=== PATIENT | female | born 1980 | race Caucasian/White ===

== ENCOUNTER → 2019-08-06 | Outpatient (CLI) | payer BC ==
--- NOTE | 2019-08-07 09:48 | XR ---
Left ankle HISTORY: Left ankle pain There is no significant soft tissue swelling. Bone mineralization, joint spaces and alignment are melba ntained. There is a plantar calcaneal spur. Enthesophyte present at the insertion of the Achilles ten don. IMPRESSION: No acute abnormality. Plantar calcaneus spur and additional findings above.
== END | disposition home or self-care (01) ==
LOC: RADXRMAIN 16:37
PROVIDERS: ATTEND Family Medicine
DX: M77.32 Calcaneal spur, left foot (principal); M76.62 Achilles tendinitis, left leg

== ENCOUNTER → 2020-08-26 | Outpatient (CLI) | payer BC ==
--- NOTE | 2020-08-26 13:43 | US ---
EXAMINATION TYPE: US pelvis limited transvag DATE OF EXAM: 08/26/2020 COMPARISON: CT 07/15/2015 CLINICAL HISTORY: 40-year-old female R10.31 Rt lower quad pain. Right pelvic pain x 1 day, 1, para 1 TECHNIQUE: Transabdominal sonographic images of the pelvis were acquired. Transvaginal sonographic i mages were medically necessary to better assess the following anatomy: ovaries Date of LMP: 07/25/2020 FINDINGS: EXAM MEASUREMENTS: Uterus: 10.1 x 5.5 x 6.0 cm Endometrial Stripe: 0.6 cm Right Ovary: Heterogeneous structure measuring up to 6.4 cm. Left Ovary: 3.4 x 2.4 x 3.7 cm 1. Uterus: anteverted, bulky, heterogeneous. Numerous cervical nabothian cysts. 2. Endometrium: appears wnl 3. Right Ovary: CT adnexa below 4. Left Ovary: 1.5cm hyperechoic focus 5. Bilateral Adnexa: right adnexa: 6.4 x 4.1 x 4.2cm complex area seen within right adnexa, this con tains cystic and echogenic areas corresponding well to the lesion seen on the CT of 2014 containing c alcification and fat. 6. Posterior cul-de-sac: wnl IMPRESSION: 1. Heterogeneous, bulky uterus could reflect underlying diffuse fibroid change. 2. Large 6.4 cm lesion within the right adnexa corresponds to the ovarian dermoid seen on the 015 CT where measurements were similar. 3. Additional small 1.5 cm dermoid within the left ovary.
== END | disposition home or self-care (01) ==
LOC: RADUSWWP 12:37
PROVIDERS: ATTEND Family Medicine
DX: N85.2 Hypertrophy of uterus (principal); N85.8 Other specified noninflammatory disorders of uterus
CPT/HCPCS: 76830; 76857

== ENCOUNTER → 2020-09-23 | Outpatient (CLI) | payer BC ==
[2020-09-23 15:56] LABS: Basophils % (A) 0 %; Eosinophils # (A) 0.1 k/uL (0-0.7); Eosinophils % (A) 1 %; HGB 13.6 gm/dL (11.4-16.0); Lymphocytes # (A) 2.5 k/uL (1.0-4.8); Lymphocytes % (A) 33 %; MCH 29.6 pg (25.0-35.0); MCHC 33.2 g/dL (31.0-37.0); MCV 89.3 fL (80.0-100.0); Mean Platelet Volume 7.5; Monocytes # (A) 0.3 k/uL (0-1.0); Monocytes % (A) 4 %; Neutrophils # (A) 4.5 k/uL (1.3-7.7); Neutrophils % (A) 59 %; Platelet Count 275 k/uL (150-450); RBC 4.59 m/uL (3.80-5.40); RDW 13.9 % (11.5-15.5); WBC 7.7 k/uL (3.8-10.6)
[2020-09-23 15:58] LABS: African American GFR (CKD) >90 (>60 ml/min/1.73 sqM); Anion Gap 6 mmol/L; Blood Urea Nitrogen 12 mg/dL (7-17); Calcium 9.3 mg/dL (8.4-10.2); Carbon Dioxide 25 mmol/L (22-30); Chloride 108 mmol/L (98-107); Glucose 83 mg/dL (74-99); Non-African American GFR(CKD) >90 (>60 ml/min/1.73 sqM); Potassium 3.9 mmol/L (3.5-5.1); Sodium 139 mmol/L (137-145)
== END | disposition home or self-care (01) ==
LOC: LABWHC1 14:57
PROVIDERS: ATTEND Obstetrics & Gynecology
DX: Z01.818 Encounter for other preprocedural examination (principal)
CPT/HCPCS: 36415; 80048; 85025

== ENCOUNTER 2020-09-29 05:46 | Inpatient (IN) | payer BC ==
[2020-09-23 12:08] VITALS: BMI 34.9
--- NOTE | 2020-09-28 12:13 | P.HPOB ---
History of Present Illness H&P Date: 09/28/20 Chief Complaint: Pelvic pain, bilateral dermoid cysts This patient is a pleasant 40 yr female with known bilateral dermoid cysts that have become larger and causing her significant pain. Her history is such that earlier this month she developed severe RLQ pain at work. She went to the ER and CT/ultrasound shows 6.8cm dermoid cyst of the right and 1.5cm dermoid cyst of the left ovary. She has had the right cyst since about 2014, but it has got larger. She now presents for excision. Patient requests right oopherectomy and also excision of left dermoid. Carito is done child bearing and therefore is also requesting permanent sterilization, so plan left salp ingectomy. Review of Systems Constitutional: Reports as per HPI Genitourinary: Reports as per HPI, Reports pelvic pain Past Medical History Past Medical History: Hypertension Additional Past Medical History / Comment(s): used to take BP med, no longer needed since weight loss, stopped in May, takes saxenda for weight loss, not diabetes History of Any Multi-Drug Resistant Organisms: None Reported Past Surgical History: Tonsillectomy Additional Past Surgical History / Comment(s): lasik eye surg. Past Anesthesia/Blood Transfusion Reactions: No Reported Reaction Past Psychological History: No Psychological Hx Reported Smoking Status: Never smoker Past Alcohol Use History: None Reported Past Drug Use History: None Reported - Past Family History Mother Family Medical History: No Reported History Medications and Allergies Home Medications Medication Instructions Recorded Confirmed Type Cetirizine HCl [Zyrtec] 10 mg PO DAILY 09/23/20 09/23/20 History Liraglutide [Saxenda] 3 mg SQ DAILY 09/23/20 09/23/20 History Allergies Allergy/AdvReac Type Severity Reaction Status Date / Time Sulfa (Sulfonamide Allergy Rash/Hives Verified 09/23/20 12:00 Antibiotics) cephalexin [From Keflex] AdvReac Nausea & Verified 09/23/20 12:01 Vomiting Exam - OBG Physical Exam Abdomen: bowel sounds normal, no diffuse tenderness, no bruit present, no guarding noted, no hepatomegaly, no splenomegaly, no mass Vulva: both: normal Vagina: normal moisture, no discharge Cervix: no lesion, no discharge Uterus: normal size, normal contour Adnexa: right: mass Results Ultrasound on 08/26/20 shows 6.4cm right ovarian dermoid, 1.5 cm left ovarian dermoid. Assessment and Plan Assessment: This is a pleasant 40 yr old female with know bilateral dermoid cysts (R>L) and pelvic pain. Patient and I have discussed management and plan to proceed with laparotomy, right salpingoopherectomy, left salpingectomy, and excision of left ovarian dermoid. I have had a long discussion with her in regards to the surgery and risks: infection, bleeding, possible injury to bowel/bladder/vessels and/or other organs. I also discussed the possible need of left oopherectomy. All of her questions were answered and a written consent obtained. (1) Pelvic pain Status: Acute Code(s): R10.2 - PELVIC AND PERINEAL PAIN SNOMED Code(s): 09082000 (2) Bilateral dermoid cysts of ovaries Status: Acute Code(s): D27.0 - BENIGN NEOPLASM OF RIGHT OVARY; D27.1 - BENIGN NEOPLASM OF LEFT OVARY SNOMED Code(s): 415973099
[~2020-09-29 05:46] MED LIST: DEXAMETHASONE SOD PHOSPHATE 4 MG/ML 1 ML VIAL IV ONE; MIDAZOLAM 2 MG/2 ML VIAL IV PRN; ONDANSETRON 4 MG/2 ML VIAL IVP ONE; SCOPOLAMINE 1.5MG/72HR PATCH TRANSDERM ONE
[2020-09-29] MEDS ORDERED: LACTATED RINGERS 1,000 ML IV ONE (06:32)
[2020-09-29 06:33] LABS: Glucose,Whole Blood 93 mg/dL (75-99)
[2020-09-29] MEDS ORDERED: fentaNYL (PF) 50 MCG/ML 2 ML AMP IVP ONE (06:49)
[2020-09-29] MEDS ORDERED: MIDAZOLAM 2 MG/2 ML VIAL IVP ONE (06:49)
[2020-09-29] MEDS ORDERED: HYDROmorphone 0.5 MG/0.5 ML SYRINGE IVP PRN (07:00)
[2020-09-29] MEDS ORDERED: MIDAZOLAM 2 MG/2 ML VIAL ONE (07:26)
[2020-09-29] MEDS ORDERED: ROCURONIUM 10 MG/ML (10 ML VIAL) IV ONE (07:26)
[2020-09-29] MEDS ORDERED: GLYCOPYRROLATE 0.2 MG/ML 2 ML VIAL ONE (07:26)
[2020-09-29] MEDS ORDERED: PROPOFOL 10 MG/ML 20 ML VIAL IV ONE (07:26)
[2020-09-29] MEDS ORDERED: fentaNYL (PF) 50 MCG/ML 2 ML AMP ONE (07:26)
[2020-09-29] MEDS ORDERED: NEOSTIGMINE 1 MG/ML 10 ML VIAL ONE (07:26)
[2020-09-29] MEDS ORDERED: LIDOCAINE 1% INJ 10MG/ML (20 ML MDV) ONE (07:26)
[2020-09-29] MEDS ORDERED: SUCCINYLCHOLINE CHLORIDE VIAL 200 MG/10 ML VIAL IV ONE (07:26)
[2020-09-29] MEDS ORDERED: CELLULOSE,OXIDIZED 1 EACH EACH MISCELLANE ONE (08:30)
--- NOTE | 2020-09-29 08:51 | P.OP ---
Date of Procedure: 09/29/20 Preoperative Diagnosis: #1: Pelvic pain. #2: Bilateral ovarian dermoid cysts #3: Requesting permanent sterilization Postoperative Diagnosis: Same Procedure(s) Performed: Exploratory laparotomy, right salpingo-oophorectomy, left salpingectomy, partial left oophorectomy with excision of dermoid Anesthesia: ROBEL Surgeon: Narinder Dennis Event Marketing Assistant #1: Nilda Gasca Estimated Blood Loss (ml): 30 Pathology: other (Right fallopian tube and ovary. Left fallopian tube. Portion of left ovary with dermoid) Condition: stable Disposition: PACU Indications for Procedure: Please see dictated H&P for intimate details of this patient's admission. Brief summary this is a pleasant 40-year-old 1 para 1 female with known bilateral dermoid cysts and significant worsening right sided pelvic pain. Patient presents for excision of her right tube and ovary and left fallopian tube and portion of the left ovary. She and I have discussed the surgery and risks including risks of infection, bleeding, possible injury to bowel, bladder, vessels, and/or other organs. All the patient's questions are answered and a written consent is obtained. Operative Findings: This patient had a large dermoid approximately 7 cm of the right ovary. The left ovary had what palpated to be a 1-2 cm dermoid it encompassed a substance of the ovary. The uterus appeared normal. Both fallopian tubes appeared normal. Description of Procedure: This patient is taken to the operating room. She subsequently undergoes general endotracheal anesthesia without incident. With an adequate level of anesthesia she has a Hidalgo catheter placed to straight drain. She has an abdominal prep and drape. Scalpels and taken a Pfannenstiel skin incision is then made. A second scalpel is taken down to the fascia and the fascia scored with a knife. Fascial incision is extended bilaterally using the Tena scissors. Fascia is dissected off the rectus muscles sharply. Rectus muscles are the peritoneum identified and entered sharply. Peritoneum was then entered sharply and extended superior and inferior without difficulty. This time inspection the pelvis is done the uterus appears normal. There is a large cyst consistent with a dermoid of the right ovary. Left ovary appears on the surface to be normal but palpates to have a firm substance within this ovary itself. [place] retractor is then placed. The bowels packed up out of the pelvis with wet laparotomy sponge. Using a Arcadia I grabbed the right fallopian tube and ovary. Curved Heaneys placed across the pedicle on multiple clamps and it is excised and suture ligated with 0 Vicryl. Hemostasis is noted. Then turned my attention to the left ovary. I grabbed the ovary with a Roxane and I can palpate what appears to be the dermoid and using Bovary I excise proximally 50% of that ovary. Using 0 Vicryl I over stitched the ovary for hemostasis. Then turned my attention to the left fallopian tube and using Heaneys I serially clamped and transected and suture ligated with 0 Vicryl. The left fallopian tube is excised. A small area of bleeding on the right side and therefore I grabbed this with the Arcadia in place 1 [id number] 0 Vicryl suture. When hemostasis is noted this time copious irrigation is done and no further bleeding is noted. A small square of Interceed is then placed over the left ovary to prevent future adhesions. Final inspection shows excellent hemostasis on the left and right sides. The laparotomy sponges then removed. All counts are correct. The Cesar retractor is removed. The parietal peritoneum was then closed using 0 Vicryl running fashion. Rectus muscle reapproximate 0 Vicryl interrupted fashion. Fascial incision closed using 0 PDS. Fascial incision is intact and hemostatic. Subcutaneous tissues and closed using a 3-0 Vicryl. Skin is and closed using asha. All counts are correct 3. There are no complications. Patient is awakened from anesthesia and taken recovery room in satisfactory condition.
[2020-09-29] MEDS: LACTATED RINGERS 1,000 ML IV SCH ×3 (09:24→16:42)
[2020-09-29] MEDS ORDERED: Acetaminophen-Codeine 300-30mg TAB PO PRN (09:56)
[2020-09-29] MEDS ORDERED: diphenhydrAMINE 50 MG/ML 1 ML VIAL IVP PRN (09:56)
[2020-09-29] MEDS ORDERED: LACTATED RINGERS 1,000 ML IV SCH (09:56)
[2020-09-29] MEDS ORDERED: SIMETHICONE 80 MG CHEWABLE PO PRN (09:56)
[2020-09-29] MEDS ORDERED: ONDANSETRON 4 MG/2 ML VIAL IVP PRN (09:56)
[2020-09-29] MEDS: KETOROLAC 15 MG/ML 1 ML VIAL IVP PRN ×2 (10:28→16:41)
[2020-09-29] MEDS: Acetaminophen-Codeine 300-30mg TAB PO PRN (21:50)
[2020-09-30] MEDS: KETOROLAC 15 MG/ML 1 ML VIAL IVP PRN ×2 (00:05→06:19)
--- NOTE | 2020-09-30 06:25 | P.PN ---
Progress Note - Text Progress Note Date: 09/30/20 Postoperative day #1. Patient is resting without complaints. Vital signs are stable and she is afebrile. Her incision is intact and dry. She is been able to urinate without difficulty. She's tolerating clear liquids. Plan today is to advance to regular diet, check CBC, encourage ambulation. Most likely discharge home tomorrow
[2020-09-30 07:13] LABS: Basophils % (A) 0 %; Eosinophils % (A) 0 %; HGB 12.3 gm/dL (11.4-16.0); Lymphocytes # (A) 1.9 k/uL (1.0-4.8); Lymphocytes % (A) 16 %; MCH 29.4 pg (25.0-35.0); MCHC 33.2 g/dL (31.0-37.0); MCV 88.6 fL (80.0-100.0); Mean Platelet Volume 7.1; Monocytes # (A) 0.5 k/uL (0-1.0); Monocytes % (A) 4 %; Neutrophils # (A) 9.5 k/uL (1.3-7.7); Neutrophils % (A) 79 %; Platelet Count 282 k/uL (150-450); RBC 4.18 m/uL (3.80-5.40); RDW 13.8 % (11.5-15.5); WBC 12.1 k/uL (3.8-10.6)
--- NOTE | 2020-09-30 07:22 | P.PN ---
Progress Note - Text Progress Note Date: 09/30/20 (799) Anesthesia Postop day 1 Subjective: Status Post auditory laparotomy with Duramorph. Patient seen and examined. Doing well without complaint. VAS 2 out of 10. No nausea vomiting, or pruritus.. Afebrile. Gross lower extremity strength intact. Positive ambulation. Without apparent anesthetic complications. Objective: Vital signs reviewed Heart: Regular Rate Lungs: Good chest excursion Abdomen: Appears nondistended Assessment: Status post exploratory laparotomy with Duramorph postop day 1 Plan: Continue current care with your medical management.
[2020-09-30] MEDS: Acetaminophen-Codeine 300-30mg TAB PO PRN (07:50)
[2020-09-30] MEDS: IBUPROFEN 600 MG TAB PO PRN ×3 (12:26→23:58)
[2020-10-01] MEDS: ACETAMINOPHEN TAB 325 MG TAB PO PRN ×2 (01:14→07:36)
--- NOTE | 2020-10-01 06:05 | P.PN ---
Progress Note - Text Progress Note Date: 10/01/20 Postoperative day #2. Patient is resting without new complaints. Vital signs are stable she is afebrile. Incision is intact and dry. CBC yesterday was normal. Patient's ambulating and urinating and tolerating regular diet. Plan today is to continue routine postoperative care and will discharge home later this morning.
--- NOTE | 2020-10-01 06:14 | P.DS ---
Providers Date of admission: 09/29/20 05:46 Expected date of discharge: 10/01/20 Attending physician: Narinder Dennis Primary care physician: [facility] - Discharge Diagnosis(es) (1) Pelvic pain Current Visit: No Status: Acute (2) Bilateral dermoid cysts of ovaries Current Visit: No Status: Acute Hospital Course: Please see dictated H&P for intimate details of this patient's admission. Brief summary this pleasant 40-year-old 1 para 1 female admitted for sports or laparotomy for bilateral dermoid cysts. Please see dictated admission note and operative note. Postoperative patient does well and on postoperative day #2 felt be stable for discharge home follow up with me in approximately 1 week. Procedures: Exploratory laparotomy, right salpingo-oophorectomy, left salpingectomy, and excision of left ovarian dermoid Patient Condition at Discharge: Good Plan - Discharge Summary Discharge Rx Participant: Yes New Discharge Prescriptions: New Ibuprofen [Motrin] 600 mg PO Q6HR PRN #30 tab PRN Reason: Mild Discomfort Acetaminophen-Codeine 300-30mg [Tylenol w/codeine #3] 1 each PO Q4HR PRN #18 tab PRN Reason: Moderate Pain No Action Cetirizine HCl [Zyrtec] 10 mg PO DAILY Liraglutide [Saxenda] 3 mg SQ DAILY Discharge Medication List Cetirizine HCl [Zyrtec] 10 mg PO DAILY 09/23/20 [History] Liraglutide [Saxenda] 3 mg SQ DAILY 09/23/20 [History] Acetaminophen-Codeine 300-30mg [Tylenol w/codeine #3] 1 each PO Q4HR PRN #18 tab 10/01/20 [Rx] Ibuprofen [Motrin] 600 mg PO Q6HR PRN #30 tab 10/01/20 [Rx] Follow up Appointment(s)/Referral(s): Narinder Dennis MD [STAFF PHYSICIAN] - 10/09/20 9:15 am Patient Instructions/Handouts: *Surgery [facility] - (Anesthesia) Discharge Instructions Outpatient Surgery, *[facility] - Scopalamine Patch Instructions, Exploratory Laparoscopy (DC) Activity/Diet/Wound Care/Special Instructions: No strenuous activity or heavy lifting for 6 weeks. No driving as instructed. No intercourse or anything per vagina for 4 weeks. Please call if any fever, chills, excessive vaginal bleeding, and/or abdominal pain. Discharge Disposition: HOME SELF-CARE
[2020-10-01] MEDS: IBUPROFEN 600 MG TAB PO PRN (06:32)
--- NOTE | 2020-10-01 08:18 | P.PN ---
Progress Note - Text Progress Note Date: 10/01/20 Went to evaluate the patient today as she's been having complaints of a headache. Patient complains that she has a headache in the occipital and occasionally the frontal region described as aching sharp and throbbing that gets worse when sitting up and is relieved while lying down. Patient also endorses some mild photophobia as well as some nausea. It is possible that the patient does have post-dural puncture headache as her symptoms are consistent with that, I had a long discussion with the patient regarding the management of this pathology and told her that generally conservative measures (IV hydration, caffeine) are effective and will likely resolve within the next few days (85% of these generally resolve within less than 5 days). I also did discuss with her the possibility of epidural blood patch including the risks of the procedure which include worsening of the headache if there is difficulty with accessing epidural space, infection, bleeding. At this time patient would like to proceed with conservative measures.
--- NOTE | 2020-10-01 10:50 | P.PCN ---
Description of Procedure: Patient decided to proceed with epidural blood patch. Procedure= lumbar epidural blood patch. Preoperative diagnosis= postdural puncture headache. Postoperative diagnoses= post dural puncture headache. Indication for the procedure= patient developed headache after spinal with duramorph on 09/29, spinal headache persists in spite of conservative treatment, there is no focal neurological deficit, no fever, no neck stiffness, headache worse with sitting and standing position, and improved with lying supine, for this reason patient is a good candidate for epidural blood patch. anesthesia= local infiltration with lidocaine 1% 3 mL. Procedure date 10/01/20 Procedure time: [id number] Complications= none. Description of the procedure= patient identified risks and benefits of the procedure explained to the patient and patient agreed with proceeding, vital signs monitored during the procedure Back lumbar area prepped with Betadine 3 times, then drape applied. Local infiltration of the skin and subcutaneous tissue with lidocaine 1% 3 mL at L4-5 interlaminar space (at the site of prior lumbar puncture) then 20-gauge Tuohy needle advanced slowly, there was positive loss of resistance to normal saline, no heme no paresthesia no cerebrospinal fluid. Then, patient's blood was taken under strict sterile technique, after the antecubital area was prepped with a chlorhexidine 2 times, using 20-gauge Angiocath, 20 ML of the blood removed was injected into the epidural space, at which point patient did not experience intense pressure, no paresthesias. Then the needle was removed intact the skin cleaned and bandage applied and patient was placed supine in floor room for 2 hours and will be discharged by primary team. Follow-up: When necessary
[2020-10-01 11:42] VITALS: BP 133/79; PULSE 90; RESP 16; TEMP 98.2
== END 2020-10-01 12:12 | disposition home or self-care (01) | DRG 743 ==
LOC: 2ORMAIN 05:46 → 4FBP 09:17
PROVIDERS: ADMIT Obstetrics & Gynecology; ATTEND Obstetrics & Gynecology
PROC: 0UB10ZZ Excision of Left Ovary, Open Approach (ICD-10-PCS; principal; 2020-09-29 07:30)
PROC: 0UT70ZZ Resection of Bilateral Fallopian Tubes, Open Approach (ICD-10-PCS; principal; 2020-09-29 07:30)
PROC: 0UT00ZZ Resection of Right Ovary, Open Approach (ICD-10-PCS; principal; 2020-09-29 07:30)
PROC: 3E0R3GC Introduction of Other Therapeutic Substance into Spinal Canal, Percutaneous Approach (ICD-10-PCS; 2020-10-01)
DX: D27.0 Benign neoplasm of right ovary (principal); D27.1 Benign neoplasm of left ovary; I10 Essential (primary) hypertension; G97.1 Other reaction to spinal and lumbar puncture; Y84.4 Aspiration of fluid as the cause of abnormal reaction of the patient, or of later complication, without mention of misadventure at the time of the procedure; Y92.230 Patient room in hospital as the place of occurrence of the external cause; Z30.2 Encounter for sterilization; Z90.89 Acquired absence of other organs; Z88.1 Allergy status to other antibiotic agents; Z88.2 Allergy status to sulfonamides
CPT/HCPCS: 36415; 80048; 81025; 85025; 86850; 86900; 86901; 88305; 88307

== ENCOUNTER 2020-10-20 13:07 | Emergency (ER) | payer BC ==
[2020-10-20 13:13] VITALS: TEMP 97.5
--- NOTE | 2020-10-20 13:43 | ED ---
Back Pain HPI - General Source: patient, old records reviewed Limitations: no limitations <Artemio Mehta - Last Filed: 10/20/20 15:22> <Jada Mcclain - Last Filed: 10/21/20 22:45> - General Chief Complaint: Back Pain/Injury Stated Complaint: Post Op Complication Time Seen by Provider: 10/20/20 13:24 - History of Present Illness Initial Comments: This a 40-year-old female presents emergency Department with chief complaint of left flank pain. Patient states that started a few days ago when she twisted felt a pop. Patient states since this time she's felt short of breath, pain with deep inspiration. Patient states her sister is a physician and was concerned about possible PE because she had recent hysterectomy. Patient denies any history of PE or DVT. No anterior chest pain of her cardiac disease. Patient states it feels like it's more of her kidney. She has no dysuria. (Artemio Mehta) - Related Data Home Medications Medication Instructions Recorded Confirmed Cetirizine HCl [Zyrtec] 10 mg PO HS 09/23/20 10/20/20 Liraglutide [Saxenda] 3 mg SQ DAILY 09/23/20 10/20/20 Acetaminophen-Codeine 300-30mg 1 tab PO HS PRN 10/20/20 10/20/20 [Tylenol w/codeine #3] Previous Rx's Medication Instructions Recorded Ibuprofen [Motrin] 600 mg PO Q6HR PRN #30 tab 10/01/20 Allergies Allergy/AdvReac Type Severity Reaction Status Date / Time Sulfa (Sulfonamide Allergy Rash/Hives Verified 10/20/20 14:34 Antibiotics) cephalexin [From Keflex] AdvReac Nausea & Verified 10/20/20 14:34 Vomiting Review of Systems ROS Other: All systems not noted in ROS Statement are negative. <Artemio Mehta - Last Filed: 10/20/20 15:22> ROS Other: All systems not noted in ROS Statement are negative. <Jada Mcclain - Last Filed: 10/21/20 22:45> ROS Statement: Those systems with pertinent positive or pertinent negative responses have been documented in the HPI. Past Medical History Past Medical History: Hypertension Additional Past Medical History / Comment(s): used to take BP med, no longer needed since weight loss, stopped in May, takes saxenda for weight loss, not diabetes History of Any Multi-Drug Resistant Organisms: None Reported Past Surgical History: Tonsillectomy Additional Past Surgical History / Comment(s): lasik eye surg. Partial hysterectomy Past Anesthesia/Blood Transfusion Reactions: No Reported Reaction Past Psychological History: No Psychological Hx Reported Smoking Status: Never smoker Past Alcohol Use History: None Reported Past Drug Use History: None Reported - Past Family History Mother Family Medical History: No Reported History <Artemio Mehta - Last Filed: 10/20/20 15:22> General Exam Limitations: no limitations General appearance: alert, in no apparent distress Head exam: Present: atraumatic, normocephalic, normal inspection Eye exam: Present: normal appearance, PERRL, EOMI. Absent: scleral icterus, conjunctival injection, periorbital swelling ENT exam: Present: normal exam, normal oropharynx, mucous membranes moist Neck exam: Present: normal inspection, full ROM. Absent: tenderness, meningismus, lymphadenopathy Respiratory exam: Present: normal lung sounds bilaterally. Absent: respiratory distress, wheezes, rales, rhonchi, stridor Cardiovascular Exam: Present: regular rate, normal rhythm, normal heart sounds. Absent: systolic murmur, diastolic murmur, rubs, gallop, clicks GI/Abdominal exam: Present: soft, tenderness (Mild to moderate lower abdominal tenderness), normal bowel sounds. Absent: distended, guarding, rebound, rigid Back exam: Present: CVA tenderness (L). Absent: CVA tenderness (R) Neurological exam: Present: alert, oriented X3 Skin exam: Present: warm, dry, intact, normal color. Absent: rash <Artemio Mehta - Last Filed: 10/20/20 15:22> Course Vital Signs 10/20/20 10/20/20 10/20/20 13:09 15:16 16:00 Temperature 97.5 F L 97.5 F L Pulse Rate 93 80 81 Respiratory 16 18 18 Rate Blood Pressure 152/108 156/105 151/100 O2 Sat by Pulse 94 L 99 96 Oximetry Medical Decision Making - Lab Data Result diagrams: 10/20/20 13:53 10/20/20 13:53 <Artemio Mehta - Last Filed: 10/20/20 15:22> - Lab Data Result diagrams: 10/20/20 13:53 10/20/20 13:53 <Jada Mcclain - Last Filed: 10/21/20 22:45> - Medical Decision Making 40-year-old female presents emergency Department chief complaint of left flank pain. Patient symptoms certainly is no concern for PE which is negative d- dimer, x-ray unremarkable no evidence of pneumothorax. Patient's pain or consistent with intercostal injury. Patient we discharged in stable condition. (Artemio Mehta) I was available for consultation in the emergency department. The history and physical exam were done by the midlevel provider. I was consulted for this patients care. I reviewed the case with the midlevel provider and based on their presentation of the patient, I agree with the assessment, medical decision making and plan of care as documented. Chart was dictated using [employer] dictation software. Attempts were made to correct any dictation errors however some typographical errors may persist. Patient was seen during a national state of emergency due to the Covid-19 pandemic. (Jada Mcclain) - Lab Data Lab Results 10/20/20 10/20/20 10/20/20 Range/Units 13:53 13:53 13:53 WBC 7.9 (3.8-10.6) k/uL RBC 4.87 (3.80-5.40) m/uL Hgb 14.2 (11.4-16.0) gm/dL Hct 42.5 (34.0-46.0) % MCV 87.1 (80.0-100.0) fL MCH 29.2 (25.0-35.0) pg MCHC 33.5 (31.0-37.0) g/dL RDW 14.1 (11.5-15.5) % Plt Count 338 (150-450) k/uL MPV 7.1 Neutrophils % 65 % Lymphocytes % 28 % Monocytes % 4 % Eosinophils % 1 % Basophils % 0 % Neutrophils # 5.1 (1.3-7.7) k/uL Lymphocytes # 2.2 (1.0-4.8) k/uL Monocytes # 0.3 (0-1.0) k/uL Eosinophils # 0.1 (0-0.7) k/uL Basophils # 0.0 (0-0.2) k/uL PT 10.0 (9.0-12.0) sec INR 0.9 (<1.2) APTT 22.2 (22.0-30.0) sec D-Dimer 0.45 (<0.60) mg/L FEU Sodium (137-145) mmol/L Potassium (3.5-5.1) mmol/L Chloride (98-107) mmol/L Carbon Dioxide (22-30) mmol/L Anion Gap mmol/L BUN (7-17) mg/dL Creatinine (0.52-1.04) mg/dL Est GFR (CKD-EPI)AfAm (>60 ml/min/1.73 sqM) Est GFR (CKD-EPI)NonAf (>60 ml/min/1.73 sqM) Glucose (74-99) mg/dL Calcium (8.4-10.2) mg/dL Total Bilirubin (0.2-1.3) mg/dL AST (14-36) U/L ALT (4-34) U/L Alkaline Phosphatase (38-126) U/L Troponin I (0.000-0.034) ng/mL Total Protein (6.3-8.2) g/dL Albumin (3.5-5.0) g/dL Urine Color Yellow Urine Appearance Cloudy H (Clear) Urine pH 5.5 (5.0-8.0) Ur Specific Kent 1.026 (1.001-1.035) Urine Protein Trace H (Negative) Urine Glucose (UA) Negative (Negative) Urine Ketones Negative (Negative) Urine Blood Small H (Negative) Urine Nitrite Negative (Negative) Urine Bilirubin Negative (Negative) Urine Urobilinogen <2.0 (<2.0) mg/dL Ur Leukocyte Esterase Small H (Negative) Urine RBC 22 H (0-5) /hpf Urine WBC 7 H (0-5) /hpf Ur Squamous Epith Cells 7 H (0-4) /hpf Urine Bacteria Occasional H (None) /hpf Hyaline Casts 1 (0-2) /lpf Urine Mucus Many H (None) /hpf 10/20/20 10/20/20 Range/Units 13:53 13:53 WBC (3.8-10.6) k/uL RBC (3.80-5.40) m/uL Hgb (11.4-16.0) gm/dL Hct (34.0-46.0) % MCV (80.0-100.0) fL MCH (25.0-35.0) pg MCHC (31.0-37.0) g/dL RDW (11.5-15.5) % Plt Count (150-450) k/uL MPV Neutrophils % % Lymphocytes % % Monocytes % % Eosinophils % % Basophils % % Neutrophils # (1.3-7.7) k/uL Lymphocytes # (1.0-4.8) k/uL Monocytes # (0-1.0) k/uL Eosinophils # (0-0.7) k/uL Basophils # (0-0.2) k/uL PT (9.0-12.0) sec INR (<1.2) APTT (22.0-30.0) sec D-Dimer (<0.60) mg/L FEU Sodium 137 (137-145) mmol/L Potassium 4.0 (3.5-5.1) mmol/L Chloride 107 (98-107) mmol/L Carbon Dioxide 25 (22-30) mmol/L Anion Gap 5 mmol/L BUN 12 (7-17) mg/dL Creatinine 0.64 (0.52-1.04) mg/dL Est GFR (CKD-EPI)AfAm >90 (>60 ml/min/1.73 sqM) Est GFR (CKD-EPI)NonAf >90 (>60 ml/min/1.73 sqM) Glucose 85 (74-99) mg/dL Calcium 9.2 (8.4-10.2) mg/dL Total Bilirubin 0.6 (0.2-1.3) mg/dL AST 25 (14-36) U/L ALT 32 (4-34) U/L Alkaline Phosphatase 48 (38-126) U/L Troponin I <0.012 (0.000-0.034) ng/mL Total Protein 7.2 (6.3-8.2) g/dL Albumin 4.3 (3.5-5.0) g/dL Urine Color Urine Appearance (Clear) Urine pH (5.0-8.0) Ur Specific Kent (1.001-1.035) Urine Protein (Negative) Urine Glucose (UA) (Negative) Urine Ketones (Negative) Urine Blood (Negative) Urine Nitrite (Negative) Urine Bilirubin (Negative) Urine Urobilinogen (<2.0) mg/dL Ur Leukocyte Esterase (Negative) Urine RBC (0-5) /hpf Urine WBC (0-5) /hpf Ur Squamous Epith Cells (0-4) /hpf Urine Bacteria (None) /hpf Hyaline Casts (0-2) /lpf Urine Mucus (None) /hpf Disposition Is patient prescribed a controlled substance at d/c from ED?: No Time of Disposition: 15:25 <Artemio Mehta - Last Filed: 10/20/20 15:22> <Jada Mcclain - Last Filed: 10/21/20 22:45> Clinical Impression: Flank pain, Intercostal muscle pain Disposition: HOME SELF-CARE Condition: Stable Instructions (If sedation given, give patient instructions): Acute Low Back Pain (ED) Additional Instructions: Please return to the Emergency Department if symptoms worsen or any other concerns. Referrals: Yared House DO [Primary Care Provider] - 1-2 days
[2020-10-20 14:07] LABS: Basophils % (A) 0 %; Eosinophils # (A) 0.1 k/uL (0-0.7); Eosinophils % (A) 1 %; HCT 42.5 % (34.0-46.0); HGB 14.2 gm/dL (11.4-16.0); Lymphocytes # (A) 2.2 k/uL (1.0-4.8); Lymphocytes % (A) 28 %; MCH 29.2 pg (25.0-35.0); MCHC 33.5 g/dL (31.0-37.0); MCV 87.1 fL (80.0-100.0); Mean Platelet Volume 7.1; Monocytes # (A) 0.3 k/uL (0-1.0); Monocytes % (A) 4 %; Neutrophils # (A) 5.1 k/uL (1.3-7.7); Neutrophils % (A) 65 %; Platelet Count 338 k/uL (150-450); RBC 4.87 m/uL (3.80-5.40); RDW 14.1 % (11.5-15.5); WBC 7.9 k/uL (3.8-10.6)
[2020-10-20 14:10] LABS: Appearance,Urine Cloudy (Clear); Bacteria,Urine Occasional /hpf; Bilirubin,Urine Negative (Negative); Blood,Urine Small (Negative); Color,Urine Yellow; Glucose,Urine (UA) Negative (Negative); Hyaline Casts,Urine 1 /lpf (0-2); Ketones,Urine Negative (Negative); Leukocyte Esterase,Urine Small (Negative); Mucus,Urine Many /hpf; Nitrite,Urine Negative (Negative); PH, Urine 5.5 (5.0-8.0); Protein,Urine Trace (Negative); RBC,Urine 22 /hpf (0-5); Specific Gravity,Urine 1.026 (1.001-1.035); Squamous Epithelial Cell,Urine 7 /hpf (0-4); Urobilinogen,Urine <2.0 mg/dL (<2.0); WBC,Urine 7 /hpf (0-5)
[2020-10-20 14:17] LABS: ALT 32 U/L (4-34); AST 25 U/L (14-36); African American GFR (CKD) >90 (>60 ml/min/1.73 sqM); Albumin 4.3 g/dL (3.5-5.0); Alkaline Phosphatase 48 U/L (38-126); Anion Gap 5 mmol/L; Blood Urea Nitrogen 12 mg/dL (7-17); Calcium 9.2 mg/dL (8.4-10.2); Carbon Dioxide 25 mmol/L (22-30); Chloride 107 mmol/L (98-107); D-Dimer 0.45 mg/L FEU (<0.60); Glucose 85 mg/dL (74-99); INR 0.9 (<1.2); Non-African American GFR(CKD) >90 (>60 ml/min/1.73 sqM); Partial Thromboplastin Time 22.2 sec (22.0-30.0); Sodium 137 mmol/L (137-145); Total Bilirubin 0.6 mg/dL (0.2-1.3); Total Protein 7.2 g/dL (6.3-8.2)
--- NOTE | 2020-10-20 14:22 | XR ---
EXAMINATION TYPE: XR chest 2V DATE OF EXAM: 10/20/2020 COMPARISON: NONE HISTORY: Chest pain. TECHNIQUE: Frontal and lateral views of the chest are obtained. FINDINGS: There is no focal air space opacity, pleural effusion, or pneumothorax seen. The cardiac silhouette size is within normal limits. The osseous structures are intact. Overlying EKG leads. IMPRESSION: No acute cardiopulmonary process.
[2020-10-20 15:18] VITALS: RESP 18
[2020-10-20] MEDS ORDERED: ACET/COD 300 MG/30 MG STARTER PACK 6 TAB BTL PO STA (15:25)
[2020-10-20] MEDS ORDERED: ORPHENADRINE 30 MG/ML 2 ML VIAL IVP STA (15:25)
[2020-10-20] MEDS ORDERED: ONDANSETRON 4 MG/2 ML VIAL IVP STA (15:25)
[2020-10-20] MEDS ORDERED: HYDROmorphone 0.5 MG/0.5 ML SYRINGE IVP STA (15:25)
[2020-10-20 16:03] VITALS: BP 151/100; PULSE 81
== END 2020-10-20 16:03 | disposition home or self-care (01) ==
LOC: EC 13:07
DX: M79.18 Myalgia, other site (principal); R06.02 Shortness of breath; Z88.1 Allergy status to other antibiotic agents; Z88.2 Allergy status to sulfonamides; Z90.710 Acquired absence of both cervix and uterus; X50.1XXA Overexertion from prolonged static or awkward postures, initial encounter
CPT/HCPCS: 36415; 93005; 85379; 80053; 84484; 85025; 85610; 85730; 81001; 71046; 99284; 96374; 96375 ×2; J2360; J2405; J1170

== ENCOUNTER 2021-03-30 05:32 | Day surgery (SDC) | payer BC ==
[2021-03-25 15:01] VITALS: BMI 36.0
--- NOTE | 2021-03-29 08:32 | P.HPOB ---
History of Present Illness H&P Date: 03/29/21 Chief Complaint: Dysfunctional uterine bleeding. This patient is a pleasant 40-year-old 1 para 1 female who initially presented to my office several months ago with complaints of dysfunctional uterine bleeding. Patient had a pelvic ultrasound which was normal and was placed on oral contraceptives. Patient states that the bleeding is persistent and intolerable requesting endometrial ablation at this time. Patient also earlier this year had an exploratory laparotomy with a right salpingo- oophorectomy and left salpingectomy. Review of Systems Genitourinary: Reports as per HPI Past Medical History Past Medical History: Hypertension Additional Past Medical History / Comment(s): takes saxenda for weight loss, not diabetes History of Any Multi-Drug Resistant Organisms: None Reported Past Surgical History: Tonsillectomy Additional Past Surgical History / Comment(s): lasik eye surg. right salpingo- oophorectomy. left salpingectomy, partial left oophorectomy and excision of dermoid Past Anesthesia/Blood Transfusion Reactions: No Reported Reaction Additional Past Anesthesia/Blood Transfusion Reaction / Comment(s): "LONG TIME TO WAKE UP" Past Psychological History: No Psychological Hx Reported Smoking Status: Never smoker Past Alcohol Use History: None Reported Past Drug Use History: None Reported - Past Family History Mother Family Medical History: No Reported History Medications and Allergies Home Medications Medication Instructions Recorded Confirmed Type Cetirizine HCl [Zyrtec] 10 mg PO HS 09/23/20 03/25/21 History Liraglutide [Saxenda] 3 mg SQ DAILY 09/23/20 03/25/21 History Allergies Allergy/AdvReac Type Severity Reaction Status Date / Time Sulfa (Sulfonamide Allergy Rash/Hives Verified 03/25/21 14:56 Antibiotics) cephalexin [From Keflex] AdvReac Nausea & Verified 03/25/21 14:56 Vomiting Exam - OBG Physical Exam Abdomen: bowel sounds normal, no diffuse tenderness, no bruit present, no guarding noted, no hepatomegaly, no splenomegaly, no mass Vulva: both: normal Vagina: normal moisture, no discharge Cervix: no lesion, no discharge Uterus: normal size, normal contour Results Previous pelvic ultrasound of the uterus was normal. Assessment and Plan Assessment: This is a pleasant 40-year-old 1 para 1 female with refractory dysfunctional uterine bleeding/menorrhagia requesting endometrial ablation. Plan is hysteroscopy with D&C and NovaSure endometrial ablation. Patient does understand the surgery and risks and risks of infection, bleeding, possible uterine perforation, and/or thermal injury. All the patient's questions are answered and a written consent is obtained. (1) Dysfunctional uterine bleeding Status: Acute Code(s): N93.8 - OTHER SPECIFIED ABNORMAL UTERINE AND VAGINAL BLEEDING SNOMED Code(s): 35298419752932
[~2021-03-30 05:32] MED LIST changes: +LACTATED RINGERS 1,000 ML IV SCH; +Pre Op ABX Message 1 EACH MISC MISCELLANE ONE
[2021-03-30] MEDS ORDERED: LACTATED RINGERS 1,000 ML IV ONE (06:16)
[2021-03-30] MEDS ORDERED: HYDROmorphone 0.5 MG/0.5 ML SYRINGE IVP PRN (07:00)
[2021-03-30 07:39] VITALS: TEMP 97.7
--- NOTE | 2021-03-30 07:42 | P.OP ---
Date of Procedure: 03/30/21 Preoperative Diagnosis: Dysfunctional uterine bleeding/menorrhagia Postoperative Diagnosis: #1: Same Procedure(s) Performed: #1: Hysteroscopy. #2: Dilation and curettage. #3: NovaSure endometrial ablation Anesthesia: MAC Surgeon: Narinder Dennis Estimated Blood Loss (ml): 10 Urine output (ml): 25 Pathology: other (Uterine curettings) Condition: stable Disposition: PACU Indications for Procedure: Please see dictated H&P for intimate details of this patient's admission. Brief summary is a pleasant 40-year-old 1 para 1 female who is having persistent menorrhagia/dysfunctional uterine bleeding failed oral contraceptives who wishes to have an endometrial ablation. Patient understands this procedure and risks and risks of infection, bleeding, possible uterine perforation, and/or thermal injury. All the patient's questions are answered written consent is obtained. Operative Findings: This patient had normal-appearing endometrial cavity Description of Procedure: This patient is taken to the operating room where she is laid in the supine position. She subsequent undergoes general anesthesia without incident (LMA). With adequate level of anesthesia the patient placed in dorsal lithotomy position. She has a vaginal perineal prep and drape. Examination under anesthesia shows a normal size uterus mid position. Weighted speculum is placed in the posterior vagina. The anterior lip of the cervix and grasped with an Allis clamp and the uterus is sounded to 9 cm. Gentle dilation is then done of the endocervix to allow the hysteroscope easily into the uterine cavity. Hysteroscopy is performed with saline solution. Endometrial cavity appears normal without evidence of polyps or fibroids. It is measured at a length of 6.5 cm. With this done the hysteroscope was removed and the cervix is dilated more. Gentle but thorough 4 quadrant curettage then done for adequate sampling. The NovaSure device is then opened is set at a length of 6.7 cm and seated complaints had a width of 4.7 cm. It does pass the cavity integrity test is then enabled at 172 W setting for 47 seconds. NovaSure device is then removed and hysteroscopy is performed again endometrial cavity appears to be ablated up to the endocervix. With this done the Allis clamp and weighted speculum removed. All counts correct 3. There are no complications. Patient is awakened from anesthesia and taken to recovery room in satisfactory condition
[2021-03-30 08:10] VITALS: RESP 16
[2021-03-30 09:08] VITALS: BP 137/88; PULSE 85
== END 2021-03-30 09:15 | disposition home or self-care (01) ==
LOC: OR 05:32
PROVIDERS: ATTEND Obstetrics & Gynecology
DX: N92.0 Excessive and frequent menstruation with regular cycle (principal); N93.8 Other specified abnormal uterine and vaginal bleeding; Z79.899 Other long term (current) drug therapy; Z88.1 Allergy status to other antibiotic agents; Z88.2 Allergy status to sulfonamides
CPT/HCPCS: 58563; 81025; 88305; J1100; J2405; J1170

== ENCOUNTER → 2022-04-15 | Outpatient (CLI) | payer BC ==
--- NOTE | 2022-04-16 08:59 | MM ---
Reason for Exam: Screening (asymptomatic). Baseline mammogram. Patient History: Menarche at age 13. First Full-Term at age 29. Left ovary removed at age 39. Last menstrual period: 04/02/2022 Risk Values: Ashley 5 year model risk: 0.6%. NCI Lifetime model risk: 11.1%. Prior Study Comparison: Patient's first Mammogram. Tissue Density: There are scattered fibroglandular densities. Findings: Analyzed By CAD. There is no suspicious group of microcalcifications or new suspicious mass in either breast. Overall Assessment: Negative, BI-RAD 1 Management: Screening Mammogram of both breasts in 1 year. A clinical breast exam by your physician is recommended on an annual basis and results should be correlated with mammographic findings. Electronically signed and approved by: Hector Beatty M.D.
== END | disposition home or self-care (01) ==
LOC: RADMAMWWP 09:55
PROVIDERS: ATTEND Family Medicine
DX: Z12.31 Encounter for screening mammogram for malignant neoplasm of breast (principal)
CPT/HCPCS: 77067

== ENCOUNTER → 2023-04-18 | Outpatient (CLI) | payer BC ==
[2023-04-18 21:27] LABS: Basophils # (A) 0.03 X 10*3/uL (0.00-0.10); Basophils % (A) 0.4 %; Eosinophils # (A) 0.08 X 10*3/uL (0.04-0.35); HCT 42.9 % (37.2-46.3); Lymphocytes # (A) 2.73 X 10*3/uL (0.90-5.00); Lymphocytes % (A) 32.7 %; MCH 28.5 pg (27.0-32.0); MCHC 32.6 d/dL (32.0-37.0); MCV 87.4 FL (80.0-97.0); Mean Platelet Volume 10.1 FL (9.5-12.2); Monocytes # (A) 0.55 X 10*3/uL (0.20-1.00); Monocytes % (A) 6.6 %; NRBC Per 100 WBC 0 X 10*3/uL (0.00-0.01); Neutrophils # (A) 4.92 X 10*3/uL (1.80-7.70); Neutrophils % (A) 58.9 %; Platelet Count 327 X 10*3/uL (140-440); RBC 4.91 X 10*6/uL (4.10-5.20); RDW 14.1 % (11.5-14.5); WBC 8.34 X 10*3/uL (4.50-10.00)
[2023-04-19 01:30] LABS: BUN/Creat Ratio 13.71 Ratio (12.00-20.00); Blood Urea Nitrogen 9.6 mg/dL (9.0-27.0); Calcium 9.5 mg/dL (8.7-10.3); Carbon Dioxide 18.2 mmol/L (21.6-31.8); Chloride 105 mmol/L (96-109); Glucose 80 mg/dL (70-110); Potassium 4.7 mmol/L (3.5-5.5); Sodium 138 mmol/L (135-145)
== END | disposition home or self-care (01) ==
LOC: LABWHC1 13:53
PROVIDERS: ATTEND Obstetrics & Gynecology
DX: Z01.812 Encounter for preprocedural laboratory examination (principal)
CPT/HCPCS: 36415; 80048; 85025

== ENCOUNTER → 2023-04-19 | Outpatient (CLI) | payer BC | END | disposition home or self-care (01) | LOC: LABPAT 08:38 | PROVIDERS: ATTEND Obstetrics & Gynecology | DX: Z01.812 Encounter for preprocedural laboratory examination (principal) | CPT/HCPCS: 36415; 93005 ==

== ENCOUNTER 2023-04-25 05:33 | Day surgery (SDC) | payer BC ==
[2023-04-18 16:16] VITALS: BMI 43.8
[~2023-04-25 05:33] MED LIST changes: -DEXAMETHASONE SOD PHOSPHATE 4 MG/ML 1 ML VIAL IV ONE; -LACTATED RINGERS 1,000 ML IV SCH; -MIDAZOLAM 2 MG/2 ML VIAL IV PRN; -ONDANSETRON 4 MG/2 ML VIAL IVP ONE; -Pre Op ABX Message 1 EACH MISC MISCELLANE ONE; -SCOPOLAMINE 1.5MG/72HR PATCH TRANSDERM ONE; +ceFAZolin 3 GM in SODIUM CHLORIDE 0.9% 100 ML IVPB PRN
[2023-04-25] MEDS ORDERED: DEXAMETHASONE SOD PHOSPHATE 4 MG/ML 1 ML VIAL IV ONE (05:56)
[2023-04-25] MEDS ORDERED: ONDANSETRON 4 MG/2 ML VIAL IVP ONE (05:56)
[2023-04-25] MEDS ORDERED: HYDROmorphone 0.5 MG/0.5 ML SYRINGE IVP PRN ×2 (05:56→07:47)
--- NOTE | 2023-04-25 06:16 | P.HPOB ---
History of Present Illness H&P Date: 04/25/23 Chief Complaint: Dysfunctional Uterine Bleeding 42-year-old presents for total laparoscopic hysterectomy using da Marine and diagnostic cystoscopy for dysfunctional uterine bleeding despite endometrial ablation. Review of Systems All systems: negative Constitutional: Denies chills, Denies fever Eyes: denies blurred vision, denies pain Ears, nose, mouth and throat: Denies headache, Denies sore throat Cardiovascular: Denies chest pain, Denies shortness of breath Respiratory: Denies cough Gastrointestinal: Denies abdominal pain, Denies diarrhea, Denies nausea, Denies vomiting Genitourinary: Denies dysuria, Denies hematuria Musculoskeletal: Denies myalgias Integumentary: Denies pruritus, Denies rash Neurological: Denies numbness, Denies weakness Psychiatric: Denies anxiety, Denies depression Endocrine: Denies fatigue, Denies weight change Past Medical History Past Medical History: Hypertension Additional Past Medical History / Comment(s): takes saxenda for weight loss, not diabetes History of Any Multi-Drug Resistant Organisms: None Reported Past Surgical History: Tonsillectomy Additional Past Surgical History / Comment(s): lasik eye surg. right salpingo- oophorectomy. left salpingectomy, partial left oophorectomy and excision of dermoid Past Anesthesia/Blood Transfusion Reactions: No Reported Reaction Additional Past Anesthesia/Blood Transfusion Reaction / Comment(s): "LONG TIME TO WAKE UP" Smoking Status: Never smoker - Past Family History Mother Family Medical History: No Reported History Medications and Allergies Home Medications Medication Instructions Recorded Confirmed Type Cetirizine HCl [Zyrtec] 10 mg PO HS 09/23/20 04/18/23 History Loratadine-Pseudoeph 10-240 mg 1 tab PO DAILY 04/18/23 04/18/23 History [Claritin-D 24 Hour] lisinopriL [Prinivil] 10 mg PO DAILY 04/18/23 04/18/23 History Allergies Allergy/AdvReac Type Severity Reaction Status Date / Time Sulfa (Sulfonamide Allergy Rash/Hives Verified 03/25/21 14:56 Antibiotics) cephalexin [From Keflex] AdvReac Nausea & Verified 03/25/21 14:56 Vomiting Exam Osteopathic Statement: *. No significant issues noted on an osteopathic structural exam other than those noted in the History and Physical/Consult. Vital Signs Temp Pulse Resp BP Pulse Ox 04/25/23 06:07 97.5 F L 98 16 136/72 97 Intake and Output 04/24/23 04/24/23 04/25/23 14:59 22:59 06:59 Other: Weight 130 kg Heart: Regular rate and rhythm Lungs: Clear to auscultation bilaterally Abdomen: Soft, nontender Extremities: Negative Homans sign Assessment and Plan (1) Dysfunctional uterine bleeding Current Visit: No Status: Acute Code(s): N93.8 - OTHER SPECIFIED ABNORMAL UTERINE AND VAGINAL BLEEDING SNOMED Code(s): 09402980755080 Plan: 1. Total laparoscopic hysterectomy using da Marine and diagnostic cystoscopy
[2023-04-25] MEDS: LACTATED RINGERS 1,000 ML IV SCH ×2 (06:21→16:59)
[2023-04-25] MEDS ORDERED: MIDAZOLAM 2 MG/2 ML VIAL IVP ONE (06:55)
[2023-04-25] MEDS ORDERED: fentaNYL (PF) 50 MCG/ML 2 ML AMP IVP ONE (06:57)
[2023-04-25] MEDS ORDERED: GLYCOPYRROLATE 0.2 MG/ML 2 ML VIAL ONE (07:16)
[2023-04-25] MEDS ORDERED: MORPHINE SULFATE (PF) 0.3 MG/0.3 ML SYR ONE (07:16)
[2023-04-25] MEDS ORDERED: NEOSTIGMINE 1 MG/ML 10 ML VIAL ONE (07:16)
[2023-04-25] MEDS ORDERED: fentaNYL (PF) 50 MCG/ML 2 ML AMP ONE (07:16)
[2023-04-25] MEDS ORDERED: PROPOFOL 10 MG/ML 20 ML VIAL IV ONE (07:16)
[2023-04-25] MEDS ORDERED: ROCURONIUM 10 MG/ML (5 ML VIAL) IV ONE (07:16)
[2023-04-25] MEDS ORDERED: SUCCINYLCHOLINE CHLORIDE 200 MG/10 ML VIAL IV ONE (07:16)
[2023-04-25] MEDS ORDERED: LIDOCAINE 2% INJ 20 MG/ML (2 ML VIAL) ONE (07:16)
[2023-04-25] MEDS ORDERED: KETOROLAC 15 MG/ML 1 ML VIAL ONE (07:16)
[2023-04-25] MEDS ORDERED: ONDANSETRON 4 MG/2 ML VIAL IVP PRN (07:47)
[2023-04-25] MEDS ORDERED: KETOROLAC 15 MG/ML 1 ML VIAL IVP PRN (07:47)
[2023-04-25] MEDS ORDERED: NALOXONE 0.4 MG/ML 1 ML VIAL IV PRN (07:47)
[2023-04-25] MEDS ORDERED: diphenhydrAMINE 50 MG/ML 1 ML VIAL IVP PRN (07:47)
--- NOTE | 2023-04-25 07:47 | P.ANPRN ---
Procedure Note - Anesthesia - Epidural/Spinal Spinal Time Out Performed: Yes Date of Procedure: 04/25/23 Procedure Start Time: 06:54 Procedure Stop Time: 07:05 Location of Patient: PreOp Indication: Acute Post-Operative Pain, Requested by Surgeon Sedation Type: Sedate with meaningful contact maintained Preparation: Sterile Prep Position: Sitting Needle Guage: 25 Narrative: 300 mcg of duramorph ,and 25 mcg of fentanyle injected intrathecally Blood Aspirated: No Pain Paresthesia on Injection Noted: No Events: Uneventful and Well Tolerated
[2023-04-25] MEDS ORDERED: BUPIVACAINE (PF) 0.25% 30 ML VIAL SQ ONE ×2 (08:20→08:50)
[2023-04-25] MEDS ORDERED: LACTATED RINGERS 1,000 ML IV ONE (08:44)
--- NOTE | 2023-04-25 08:58 | P.OP ---
Date of Procedure: 04/25/23 Preoperative Diagnosis: 1. Dysfunctional uterine bleeding Postoperative Diagnosis: 1. Dysfunctional uterine bleeding Procedure(s) Performed: Total laparoscopic hysterectomy using da Marine and diagnostic cystoscopy Anesthesia: ROBEL Surgeon: Nilda Gasca Plow Mechanic #1: Montserrat Rubio Estimated Blood Loss (ml): 5 IV fluids (ml): 1,000 Urine output (ml): 50 Pathology: other (Uterus and cervix) Condition: stable Disposition: PACU Operative Findings: Uterus sounded to 9 cm, cervix measured 3.5 cm. Normal uterus, absent right tube and ovary normal left ovary absent left fallopian tube. Description of Procedure: Patient taken the operating room where general anesthesia was obtained without difficulty. She is prepped and draped in normal sterile fashion dorsal lithotomy position, legs placed in the Negrito stirrups. Weighted speculum placed in the vagina and the anterior lip the cervix was grasped with single-tooth tenaculum. The uterus sounded to 9 cm and the cervix diameter was 3.5 cm. The appropriate manipulator tip and ring were placed on the Ariadna manipulator. The Ariadna manipulator was then placed in the uterus. Hidalgo catheter was also placed. Attention was then turned to the abdomen and gloves were changed. A 5 mm supraumbilical incision was made the scalpel and a 5 mm optical trocar was placed under direct visualization. 10 cm to the right of this and 2 cm down a 5 mm incision was made and 8 mm da Marine port was placed under direct visualization. Same measurements on the opposite side of the patient's abdomen, the 5 mm incision was made and 8 mm da Marine port was placed under direct visualization. In the left upper quadrant a 10 mm incision was made and a 10 mm optical trocar was placed under direct visualization. The 5 mm optical trocar was then replaced with the 8 mm da Marine camera port. The robot was docked on patient's right side. The camera was introduced and then the monopolar curved scissor and vessel sealer placed under direct visualization. I broke scrub and went to the physician console. The left utero-ovarian ligament was sealed and cut using the vessel sealer. The left round ligament was sealed and cut using the vessel sealer. The posterior leaf of the broad ligament was taken down using the monopolar curved scissors. Anterior leaf of the broad ligament was then taken down using the monopolar curved scissors. The uterine artery was sealed and cut using the vessel sealer. The bladder flap was then started using the monopolar curved scissors. Attention was then turned to the right side of the patient's anatomy and the right utero-ovarian ligament was sealed and cut with the vessel sealer. The right round ligament was sealed and cut with the vessel sealer. Posterior leaf of the broad ligament was taken down using the monopolar curved scissors and the anterior leaf was taken down using the monopolar curved scissors. The uterine artery was sealed and cut with the vessel sealer. The bladder flap was then finished on this side. Anterior colpotomy was made using the monopolar curved scissors. The rest of the uterus was from the vaginal cuff by following the ring around with the mono polar curved scissors through the uterosacral ligaments back to the anterior portion. Once the uterus and cervix were amputated they were pulled through the vaginal cuff. Hemostasis was assured. The monopolar scissors were changed for the milla suture cut. The vaginal cuff was then closed using O stratafix barbed suture in a running fashion. Hemostasis was again assured and the pelvis was irrigated. All instruments were removed from the abdomen and the robot was undocked. I scrubbed back in to perform a cystoscopy. There were jets from both ureteral orifices. The abdominal incisions were closed with 4-0 Vicryl in a subcuticular fashion. Patient tolerated the procedure well, sponge and instrument counts correct 2 and she was taken to recovery room in stable condition condition
[2023-04-25 09:15] VITALS: RESP 16
[2023-04-25] MEDS ORDERED: HYDROcodone/APAP 7.5-325MG 1 EACH TAB PO PRN (10:00)
[2023-04-25] MEDS ORDERED: SIMETHICONE 80 MG CHEWABLE PO PRN (10:00)
[2023-04-25] MEDS ORDERED: METOCLOPRAMIDE 5 MG/ML 2 ML VIAL IVP PRN (10:00)
[2023-04-25] MEDS: SENNOSIDES-DOCUSATE SODIUM 1 EACH TAB PO SCH ×2 (10:39→20:01)
[2023-04-25] MEDS: LORATADINE-PSEUDOEPH 5-120 MG 1 EACH TAB.ER.12H PO SCH ×2 (11:45→20:02)
[2023-04-25] MEDS: lisinopriL 10 MG TAB PO SCH (11:46)
[2023-04-25] MEDS: IBUPROFEN 600 MG TAB PO PRN (16:03)
[2023-04-25] MEDS ORDERED: LORATADINE 10 MG TAB PO SCH (21:00)
[2023-04-25] MEDS: ACETAMINOPHEN TAB 325 MG TAB PO PRN (21:00)
[2023-04-26] MEDS: IBUPROFEN 600 MG TAB PO PRN ×2 (03:13→08:57)
[2023-04-26] MEDS: ACETAMINOPHEN TAB 325 MG TAB PO PRN (05:32)
--- NOTE | 2023-04-26 07:47 | P.PN ---
Progress Note - Text Progress Note Date: 04/26/23 Postop day 1 from hysterectomy under general anesthesia with intrathecal morphine given for postop pain management. Patient is doing well. Pain is well controlled. On visual analog scale 3/10 Mild itching present No nausea or vomiting reported. No Headache or weakness and numbness in the legs. No complications from spinal anesthesia.
[2023-04-26 08:04] LABS: Basophils % (A) 0 %; Eosinophils % (A) 0 %; HCT 37.9 % (34.0-46.0); HGB 12.7 gm/dL (11.4-16.0); Lymphocytes # (A) 1.6 k/uL (1.0-4.8); Lymphocytes % (A) 12 %; MCH 29.5 pg (25.0-35.0); MCHC 33.6 g/dL (31.0-37.0); MCV 87.9 fL (80.0-100.0); Mean Platelet Volume 7.9; Monocytes # (A) 0.5 k/uL (0-1.0); Monocytes % (A) 4 %; Neutrophils # (A) 11.1 k/uL (1.3-7.7); Neutrophils % (A) 83 %; Platelet Count 266 k/uL (150-450); RBC 4.31 m/uL (3.80-5.40); WBC 13.4 k/uL (3.8-10.6)
--- NOTE | 2023-04-26 08:33 | P.DS ---
Providers Expected date of discharge: 04/26/23 Attending physician: Nilda Gasca Primary care physician: Y[facility] - Discharge Diagnosis(es) (1) Dysfunctional uterine bleeding Current Visit: No Status: Resolved (2) History of robot-assisted laparoscopic hysterectomy Current Visit: Yes Status: Acute Hospital Course: Patient presented for total her postoperative hysterectomy using [employer] and diagnostic cystoscopy. She underwent this procedure without complication. Postoperative course was uneventful. She denies nausea, vomiting, chest pain, shortness of breath or calf pain. Patient will be discharged home postoperative day #1 in stable condition to follow-up with me in 3 weeks. Plan - Discharge Summary Discharge Rx Participant: Yes New Discharge Prescriptions: New HYDROcodone/APAP 7.5-325MG [[place] 7.5-325] 1 tab PO Q4H PRN 3 Days #18 tab PRN Reason: Pain Ibuprofen [Motrin] 600 mg PO Q6HR PRN #30 tab PRN Reason: Mild Pain Or Fever >= 100.5 No Action Cetirizine HCl [Zyrtec] 10 mg PO HS Loratadine-Pseudoeph 10-240 mg [Claritin-D 24 Hour] 1 tab PO DAILY lisinopriL [Prinivil] 10 mg PO DAILY Discharge Medication List Cetirizine HCl [Zyrtec] 10 mg PO HS 09/23/20 [History] Loratadine-Pseudoeph 10-240 mg [Claritin-D 24 Hour] 1 tab PO DAILY 04/18/23 [History] lisinopriL [Prinivil] 10 mg PO DAILY 04/18/23 [History] HYDROcodone/APAP 7.5-325MG [[place] 7.5-325] 1 tab PO Q4H PRN 3 Days #18 tab 04/26/23 [Rx] Ibuprofen [Motrin] 600 mg PO Q6HR PRN #30 tab 04/26/23 [Rx] Follow up Appointment(s)/Referral(s): Nilda Gasca DO [Doctor of Osteopathic Medicine] - 3 Weeks Discharge Disposition: HOME SELF-CARE
[2023-04-26] MEDS: SENNOSIDES-DOCUSATE SODIUM 1 EACH TAB PO SCH (08:57)
[2023-04-26] MEDS ORDERED: ACETAMINOPHEN TAB 325 MG TAB PO PRN (09:00)
[2023-04-26] MEDS: LORATADINE-PSEUDOEPH 5-120 MG 1 EACH TAB.ER.12H PO SCH (09:05)
[2023-04-26] MEDS: lisinopriL 10 MG TAB PO SCH (09:05)
[2023-04-26 09:17] VITALS: BP 114/71; PULSE 71; TEMP 97.9
== END 2023-04-26 13:55 | disposition home or self-care (01) ==
LOC: OR 05:33 → 4FBP 09:17 → OR 04-26 13:55
PROVIDERS: ATTEND Obstetrics & Gynecology
DX: D25.1 Intramural leiomyoma of uterus (principal); I10 Essential (primary) hypertension; Z90.79 Acquired absence of other genital organ(s); Z88.2 Allergy status to sulfonamides; Z88.1 Allergy status to other antibiotic agents
CPT/HCPCS: 81025; 86900; 86901; 85025; 86850; 88307; 58570; J2250; J0330; J1100; J2710; J0690; J2405; J2274; J3010; J1885; J2704; J2001